=== PATIENT | female | born 1970 | race Caucasian/White ===

== ENCOUNTER → 2016-10-04 | Outpatient (CLI) | payer OTHER ==
--- NOTE | 2016-10-04 18:24 | DX ---
Lumbar spine 2 views History: Right-sided low back pain for 4 to 5 months with occasional right lower extremity radiculopa thy. No known trauma. Comparison: None available. 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 Alignment of the lumbar spine is normal. Vertebral body heights are preserved. There is mild v ertebral spondylosis and facet hypertrophy at L5-S1. No fracture is identified. Bowel gas pattern is normal. Impression: Mild degenerative change at L5-S1.
== END ==
LOC: FIMAGING 10:04
PROVIDERS: ATTEND Orthopaedic Surgery Orthopaedic Surgery of the Spine
DX: M54.5 Low back pain (principal)